=== PATIENT | female | born 1995 ===

== ENCOUNTER 2018-03-24 15:31 | Emergency (ER) | payer OTHER ==
[2018-03-24 15:47] VITALS: BP 110/72; PULSE 88; RESP 16; TEMP 98.8
--- NOTE | 2018-03-24 15:56 | ED ---
General Adult HPI - General Chief complaint: Extremity Injury, Lower Stated complaint: Foot injury Time Seen by Provider: 03/24/18 15:52 Source: patient, RN notes reviewed Mode of arrival: wheelchair Limitations: no limitations - History of Present Illness Initial comments: Patient 22-year-old female presents emergency room today with chief complaint of injury to the right foot that occurred approximately an hour ago. Patient states she was walking when she twisted the right foot. She does admit to pain over the lateral aspect. Patient denies any complaints or symptoms. Patient denies any recent fever, chills, shortness of breath, chest pain, back pain, abdominal pain, nausea or vomiting, headaches or visual changes, or any other complaints. - Related Data Previous Rx's Medication Instructions Recorded Ibuprofen [Motrin] 600 mg PO Q6HR PRN #40 day 03/24/18 Allergies Allergy/AdvReac Type Severity Reaction Status Date / Time No Known Allergies Allergy Verified 03/24/18 15:47 Review of Systems ROS Statement: Those systems with pertinent positive or pertinent negative responses have been documented in the HPI. ROS Other: All systems not noted in ROS Statement are negative. Past Medical History Past Medical History: No Reported History History of Any Multi-Drug Resistant Organisms: None Reported Past Surgical History: No Surgical Hx Reported Past Psychological History: No Psychological Hx Reported Smoking Status: Never smoker Past Alcohol Use History: None Reported Past Drug Use History: None Reported General Exam - General Exam Comments Initial Comments: General: The patient is awake and alert, in no distress, and does not appear acutely ill. Eye: extra-ocular movements are intact. No nystagmus. There is normal conjunctiva bilaterally. No signs of icterus. Ears, nose, mouth and throat: There are moist mucous membranes and no oral lesions. Neck: The neck is supple Musculoskeletal: Patient does have mild swelling to the fourth and fifth proximal metatarsals. Locally tender in this area. Pedal pulse 2+. Shows good range of motion. Sensations intact. No bony tenderness to the lateral or medial malleolus or right knee. Neurological: A&O x 3. CN II-XII intact, There are no obvious motor or sensory deficits. Coordination appears grossly intact. Speech is normal. Skin: Skin is warm and dry and no rashes or lesions are noted. Psychiatric: Cooperative, appropriate mood & affect, normal judgment. Limitations: no limitations Course Vital Signs 03/24/18 15:44 Temperature 98.8 F Pulse Rate 88 Respiratory 16 Rate Blood Pressure 110/72 O2 Sat by Pulse 100 Oximetry Medical Decision Making - Medical Decision Making Patient's x-ray reviewed and does show fracture of the fifth proximal metatarsal. Results were discussed with the patient per she is been splinted in a posterior short leg OCL. Patient was given crutches and advised follow-up with orthopedics over the next 2 days. Advised return for any other concerns. Disposition Clinical Impression: Foot fracture Disposition: HOME SELF-CARE Condition: Good Instructions: Foot Fracture in Adults (ED) Additional Instructions: Please follow-up with orthopedics over the next 2 days. Please a splint and place until follow-up appointment. Please continue to ice elevate the affected area and use crutches with nonweightbearing. Prescriptions: Ibuprofen [Motrin] 600 mg PO Q6HR PRN #40 day PRN Reason: Pain Is patient prescribed a controlled substance at d/c from ED?: No Referrals: Nonstaff,Physician [REFERRING] - 1-2 days Philip Sultana MD [STAFF PHYSICIAN] - 1-2 days Time of Disposition: 16:38
--- NOTE | 2018-03-24 16:14 | XR ---
EXAMINATION TYPE: XR foot complete RT DATE OF EXAM: 03/24/2018 CLINICAL HISTORY: Right foot pain after twisting injury. TECHNIQUE: Frontal, lateral, and oblique images of the right foot are obtained. COMPARISON: None FINDINGS: There is a nondisplaced noncomminuted transversely oriented fracture of the base of the fif th metatarsal at the insertion of the peroneus brevis with probable extension into the intermetatarsa l joint on the oblique images only. Overlying soft tissue swelling is noted. No additional fracture s een of the right foot.. IMPRESSION: Avulsion fracture of the base of the fifth metatarsal at the insertion of the peroneus br ceci. There is concern that this represents a true Ravi fracture as the oblique images demonstrate p robable extension into the intermetatarsal joint.
[2018-03-24] MEDS ORDERED: KETOROLAC 30 MG/ML 1 ML VIAL IM STA (16:24)
== END 2018-03-24 16:47 | disposition home or self-care (01) ==
LOC: EC 15:31
DX: S92.351A Displaced fracture of fifth metatarsal bone, right foot, initial encounter for closed fracture (principal); X50.1XXA Overexertion from prolonged static or awkward postures, initial encounter; Y93.01 Activity, walking, marching and hiking; Y92.89 Other specified places as the place of occurrence of the external cause
CPT/HCPCS: 73630; 99283; 29515; 96372; J1885